=== PATIENT | female | born 1985 | race Caucasian/White ===

== ENCOUNTER → 2018-07-29 | Outpatient (CLI) | payer OTHER | END | disposition home or self-care (01) | LOC: CFH 10:04 | PROVIDERS: ATTEND Family Medicine | DX: D25.2 Subserosal leiomyoma of uterus (principal); N80.0 Endometriosis of uterus; N93.9 Abnormal uterine and vaginal bleeding, unspecified | CPT/HCPCS: 76830 ==

== ENCOUNTER 2020-05-01 21:36 | Emergency (ER) | payer OTHER ==
[~2020-05-01] VITALS: Ht 170.2 cm; Wt 115.3 kg
--- NOTE | 2020-05-01 23:09 | NUR ---
pt to room with c/o heavy period 5 ultra tampons used today
--- NOTE | 2020-05-01 23:54 | NUR ---
DR BETH NOTIFIED OF POS COVID
[2020-05-01 23:55] VITALS: BP 119/63
[2020-05-01 23:55] LABS: MEAN CORPUSCULAR HEMOGLOBIN 25.9 pg (27.0-34.8); MEAN CORPUSCULAR HGB CONC 32.7 g/dL (32.4-35.8); MEAN PLATELET VOLUME 8.6 fL (7.4-10.4); PLATELET COUNT 273 x10^3/uL (130-400); RED CELL DISTRIBUTION WIDTH 14.1 % (9.6-15.2)
[2020-05-02 00:04] LABS: ALANINE AMINOTRANSFERASE 23 U/L (12-78); ALBUMIN 3.4 g/dL (3.4-5.0); ANION GAP 4 mmol/L (5-15); CALCIUM 8.2 mg/dL (8.5-10.1); CHLORIDE 108 mmol/L (98-107); CREATININE 0.87 mg/dL (0.55-1.02)
[2020-05-02 00:08] LABS: INTERNATIONAL NORMALIZED RATIO 0.96 (0.93-1.1); PROTHROMBIN TIME 10.2 Seconds (9.6-11.5)
[2020-05-02 00:09] LABS: ALKALINE PHOSPHATASE 64 U/L (45-117); BILIRUBIN,TOTAL 0.2 mg/dL (0.2-1.0); TOTAL PROTEIN 7.2 g/dL (6.4-8.2)
[2020-05-02 00:16] LABS: MD YES
[2020-05-02 00:19] LABS: BASOS#(MANUAL) 0.05 x10^3/uL (0-0.1); BASOS% (MANUAL) 1 % (0-1); EOS#(MANUAL) 0.15 x10^3/uL (0.0-0.4); EOS% (MANUAL) 3 % (1-7); LYMPHS% (MANUAL) 44 % (22-44); MONOS% (MANUAL) 12 % (2-9); SEGS% (MANUAL) 40 % (42-75)
[2020-05-02 00:20] LABS: <PLATELET ESTIMATE> ADEQUATE; <PLT MORPHOLOGY> NORMAL PLT MORPH; ANISOCYTOSIS 1+
--- NOTE | 2020-05-02 02:02 | NUR ---
Patient/Caregiver given discharge instructions and they have confirmed that they understand the instructions. Patient ambulatory with steady gait.
== END 2020-05-02 02:04 | disposition home or self-care (01) ==
LOC: ED 05-02 01:31
DX: U07.1 COVID-19 (principal); J06.9 Acute upper respiratory infection, unspecified; J40 Bronchitis, not specified as acute or chronic; N93.8 Other specified abnormal uterine and vaginal bleeding; D50.0 Iron deficiency anemia secondary to blood loss (chronic)
CPT/HCPCS: 36415; 71046; 76830; 80053; 84703; 85025; 85610; 85730; 87635; 99285